=== PATIENT | male | born 1960 | race Caucasian/White ===

== ENCOUNTER 2016-09-02 11:36 | Inpatient (IN) ==
[2016-09-02 13:13] LABS: MANUAL DIFF NEEDED? NO
[2016-09-02 13:23] LABS: BASO% 0.2 % (0.0-0.8); EOS# 0.05 X1000 (0.0-0.7); EOS% 0.8 % (0.0-10.0); HEMOGLOBIN 13.1 g/dL (14.0-18.0); LYMPH# 1.03 X1000 (1.2-3.4); LYMPH% 17.1 % (20.5-51.1); MCHC 35.4 g/dL (33-37); MCV 98.9 FL (81-99); MONO# 0.68 X1000 (0.11-0.59); MONO% 11.3 % (1.7-9.3); MPV 10.5 FL (7.4-10.4); NEUT% 70.6 % (42.2-75.2); PLT 231 X1000 (130-400); RBC 3.74 XMIL (4.7-6.1)
[2016-09-02 13:38] LABS: AGAP 16; ALBUMIN 3.6 g/dL (3.5-5.0); ALKALINE PHOSPHATASE 70 U/L (32-122); BUN 13 mg/dL (8-22); CHLORIDE 93 mmol/L (98-107); COSMO 268; GOT 19 U/L (10-34); GPT 17 U/L (10-44); POTASSIUM 4.1 mmol/L (3.5-5.1); SODIUM 132 mmol/L (136-145); TCO2 23 mmol/L (25-35); TOTAL BILIRUBIN 0.46 mg/dL (0.20-1.00)
--- NOTE | 2016-09-02 14:28 | PROVIDER DOCUMENTATION ---
HPI-Rash/Wound/ReCheck - General Chief Complaint: Sores/Lesions Stated Complaint: LEFT FOOT PAIN Time Seen by Provider: 09/02/16 12:31 Source: patient Allergies/Adverse Reactions: Allergies Allergy/AdvReac Type Severity Reaction Status Date / Time No Known Allergies Allergy Verified 03/08/16 13:32 Home Medications: Home Medication List Medication Instructions Recorded Confirmed Last Taken Type Insulin Lispro [Humalog] 2 unit SQ DIRECTED 08/21/15 09/02/16 03/06/16 07:00 History Lisinopril 5 mg PO DAILY #30 tablet 08/25/15 03/08/16 02/28/16 07:00 Rx Metformin HCl 1,000 mg PO DAILY #30 tablet 01/04/16 03/08/16 02/28/16 07:00 Rx Lisinopril 5 mg PO DAILY #30 tablet 03/08/16 09/02/16 09/02/16 08:30 Rx Metformin [Glucophage] 1,000 mg PO DAILY #30 tablet 03/08/16 09/02/16 09/02/16 08:30 Rx - History of Present Illness-Dermatology Nature of Presenting Problem: 56 yo male presents with concern for ulcer on lateral left foot and drainage/ redness of his left great toe amputation. Had surgery performed middle of June, has been on antibiotics daily until the last two days. Went to [place] this week, and when he came back noticed that he had a blister on the lateral edge of his left foot. Has since opened and drained fluid. The great toe area has redness and purulent drainage from the surgical site, warm to touch up the foot with redness progressing. Denies fever, SOB, chest pain, abdominal pain. Location: reports: feet (left foot) Quality: reports: painful Severity: reports: mild (has decreased sensatioin in the foot, but can start to feel pain) Onset/Duration: reports: 2 days ago Timing: reports: still present, getting worse Context/Associated Symptoms: reports: blisters, other (amputation of great toe) Identifiable cause?: Yes Similar Symptoms Previously?: Yes Recently seen or treated by another doctor?: No Review of Systems - Adult - REVIEW OF SYSTEMS - ADULT Constitutional: denies: chills, fever Eyes: denies: blurred vision, double vision Cardiovascular: denies: chest pain, syncope Respiratory: denies: cough, dyspnea on exertion, shortness of breath, wheezing Gastrointestinal: denies: abdominal pain, diarrhea, nausea, vomiting Genitourinary: denies: flank pain, hematuria Musculoskeletal: reports: joint pain (left foot). denies: bone pain, back pain , frequent leg cramps, muscle aches Integumentary: reports: skin sores/ulcer (lateral left foot ulcer; ulceration on the amputation site of left great toe). denies: itching, rash Neurological: reports: numbness. denies: dizziness/vertigo, headache/migraines , syncope Past History - Adult - PAST MEDICAL HISTORY-ADULT Review of Records: reports: Old Records Reviewed, Nursing Assessment Review, Medications Reviewed, Social history reviewed & non-contributory. Major Childhood Illnesses: reports: denies history Cardiovascular: reports: HTN Respiratory: reports: denies history Gastrointestinal: reports: denies history Obstetrical/Gynecological: reports: denies history Genitourinary: reports: denies history Musculoskeletal: reports: denies history Neurological: reports: denies history Endocrine/Immune: reports: Diabetes Other Conditions: reports: denies history - PRIOR SURGERIES/PROCEDURES Surgical/Procedure History: reports: orthopedic (extremity) (left foot ) - IMMUNIZATION STATUS Childhood Immunizations: See Nurse Assessment Flu Vaccine: See Nurse Assessment - FAMILY HISTORY Family History: reviewed, not pertinent - SOCIAL HISTORY Smoking: cigarettes, greater than 1 pack/day Provider spent 3-5 mins advising pt. on dangers of tobacco.: Discussed manners to quit use, and f/u contacts for add'l counseling. Physical Exam-General - PHYSICAL EXAM-ADULT Initial Vital Signs Reviewed: Yes - CONSTITUTIONAL General Appearance: appears well, alert, no apparent distress - EYES Eyes: PERRL/EOMI, pink conjunctivae. negative: sclera injected, scleral icterus - HEAD, EARS, NOSE, MOUTH & THROAT HENMT: moist mucous membranes - RESPIRATORY Respiratory: chest non-tender, lungs clear, normal breath sounds, no pleuratic chest pain, no respiratory distress, no accessory muscle use. negative: crackles, rales, rhonchi, stridor, wheezing - CARDIOVASCULAR Cardiovascular: normal peripheral pulses, regular rate, rhythm, no edema, no gallop, no JVD, no murmur - MUSCULOSKELETAL Extremity: no pedal edema, no calf tenderness, erythema, inflammation, other. negative: normal inspection (left great toe amputation with purulent discharge at the site. Unable to visualize bone, skin is moist and erythematous. Streaking from the great toe up the metatarsal. Is hot to touch. Lateral left foot/along fifth metatarsal has scabbed ulcer, no drainage. Warm to touch. Pulses and sensation intact.) Peripheral Pulses: radial (R): 2+, radial (L): 2+, dorsalis-pedis (R): 2+, dorsalis-pedis (L): 2+ - SKIN Integumentary: erythema, tenderness, warm. negative: embolic lesions, rash, swelling - NEUROLOGIC Neurologic: grossly normal, no motor/sensory deficits - PSYCHIATRIC Psych/Mental Status: normal mood/affect, normal thought content, normal thought process Progress - PLAN OF CARE/RESULTS Progress/Plan/Lab Results: Vital Signs - 8 hr 09/02/16 11:41 09/02/16 13:34 09/02/16 15:45 Temperature 97.8 F Pulse Rate 116 H 81 Respiratory Rate 20 14 Blood Pressure 184/67 125/67 139/76 O2 Sat by Pulse Oximetry 100 99 100 Laboratory Results - last 24 hr 09/02/16 09/02/16 09/02/16 13:01 13:01 13:01 WBC 6.02 RBC 3.74 L Hgb 13.1 L Hct 37.0 L MCV 98.9 MCH 35.0 H MCHC 35.4 RDW Std Deviation 14.5 Plt Count 231 MPV 10.5 H Immature Gran % (Auto) 0.0 Neut % (Auto) 70.6 Lymph % (Auto) 17.1 L Doddridge % (Auto) 11.3 H Eos % (Auto) 0.8 Baso % (Auto) 0.2 Immature Gran # (Auto) 0.00 Neut # (Auto) 4.25 Lymph # (Auto) 1.03 L Doddridge # (Auto) 0.68 H Eos # (Auto) 0.05 Baso # (Auto) 0.01 Sodium 132 L Potassium 4.1 Chloride 93 L Carbon Dioxide 23 L Anion Gap 16 BUN 13 Creatinine 0.9 Estimated GFR/1.73 m2 > 60 BUN/Creatinine Ratio 14 Glucose 151 H Calculated Osmolality 268 Calcium 9.0 Total Bilirubin 0.46 AST 19 ALT 17 Alkaline Phosphatase 70 Total Protein 7.0 Albumin 3.6 Globulin 3.4 Albumin/Globulin Ratio 1.1 Plasma Lactate 0.8 Orders Category Date Time Status Admit - [facility] [place] Routine AdmDCTranf 09/02/16 16:12 Ordered Diabetic Diet Diet 09/02/16 16:13 Active FOOT COMPLETE LEFT [RAD] Stat Exams 09/02/16 14:30 Completed BLOOD CULTURE [BLDCUL] Stat Lab 09/02/16 13:01 Received CBC WITH ELECTRONIC DIFF [HEME] Stat Lab 09/02/16 13:01 Completed COMPREHENSIVE METABOLIC PANEL [CHEM] Stat Lab 09/02/16 13:01 Completed LACTATE, PLASMA [CHEM] Stat Lab 09/02/16 13:01 Completed Piperacil/Tazobact 3.375 gm/Ns [Zosyn 3.375 gm/Ns] Med 09/02/16 15:52 Discontinued 3.375 gm in 50 ml IV NOW Vancomycin 1 gm/Ns Med 09/02/16 15:49 Discontinued 1 gm in 250 ml IV NOW Telemetry [OM.EQ] Routine Oth 09/02/16 16:12 Active Discuss[address] case with Dr Clark. Pt x ray shows possible early osteomyelitis in the 1st metatarsal. Has purulent drainage from the amputation site. Is afebrile, NEG lactate, normal WBC count. Recommend consult with surgery for evaluation. 1538 Result Diagrams: 09/02/16 13:01 09/02/16 13:01 - XRAY 1 XRAY: Left XRAY Study: Foot Impression: Abnormal (Possible early osteomyelitis in 1st metatarsal.) - CONSULTS/PCP/HOSPITALIST Notification #1 *Consult/PCP/Hospitalist*: Dr. Richard, General Surgeon Time Discussed: 16:09 (Admit for debridement, IV abx) Consult Disposition: Admit Departure - Departure Time of Disposition Decision: 16:09 DIAGNOSIS: Cellulitis of foot, right Disposition: ADMITTED INPATIENT 09 Certified Medical Emergency: Emergent Condition: Stable Referrals and Follow-Ups: None,PCP [Primary Care Provider] - - Critical Care Note This patient required my direct personal management.: No Attestation - Physician/ VANITA Attestation Patient care was provided by Advanced Practice Provider:: Yes Advanced Practice Provider:: Dinesh Mendez Advanced Practice Provider documentation review:: The Mid-level provider documentation, treatment plan and medical decision making was reviewed by the physician who agrees with all treatment and medical decision making by the MLP.
[2016-09-02] MEDS ORDERED: VANCOMYCIN 1 GM/NS 1 GM/250 ML IVPB IV ONE (15:49)
[2016-09-02] MEDS ORDERED: ZOSYN 3.375 GM/NS 3.375 GM/50 ML IVPB IV ONE (15:52)
--- NOTE | 2016-09-02 16:40 | Diag Imaging Result Document ---
PROCEDURE NAME: FOOT COMPLETE LEFT - 09/02/2016 LEFT FOOT, 3 VIEWS: FINDINGS: There has been previous amputation of the great toe. There is mild irregularity of the distal margin of the distal head of the 1st metatarsal. This may relate to early osteomyelitis. There are chronic appearing deformities of the bases of the proximal phalanges of the 2nd and 5th toes noted. There is no acute fracture or dislocation identified. There is calcaneal spurring noted at the Achilles tendon insertion. IMPRESSION: Possible changes of early osteomyelitis at the distal head of 1st metatarsal.
[2016-09-02] MEDS ORDERED: HUMULIN R IV ONE (22:59)
[2016-09-02] MEDS ORDERED: INSULIN LISPRO 2 UNIT SQ SCH (23:00)
[2016-09-02] MEDS ORDERED: VANCOMYCIN IV PER PHARMACY MISC SCH (23:00)
--- NOTE | 2016-09-02 23:28 | HISTORY AND PHYSICAL ---
CHIEF COMPLAINT: Nonhealing wound on his left foot with infection. HISTORY OF PRESENT ILLNESS: This is a 56-year-old male who developed an infected ulcer on his left great toe. He was visiting his family in [place] and subsequently required admission and left great toe amputation at the metatarsophalangeal joint. He has continued to have problems with healing and drainage and had a PICC line and was undergoing IV antibiotics for some time. Things had been improving and then he needed to leave [place] and come back home to [place]. He had been treating it recently with Zuri and was taking Bactrim but he ran out of his Bactrim. He came to the ER with increased foul, purulent drainage and redness of his foot. PAST MEDICAL HISTORY: Diabetes, high blood pressure. PAST SURGICAL HISTORY: Partial amputation of left great toe. HOME MEDICATIONS: Lisinopril, metformin, Humalog. ALLERGIES: No known drug allergies. SOCIAL HISTORY: Denies alcohol or illicit drug use. He does smoke a pack per day. FAMILY HISTORY: Positive for diabetes. REVIEW OF SYSTEMS: Ten systems reviewed and negative except as noted above. PHYSICAL EXAMINATION: GENERAL: He is alert and oriented x3. No acute distress. CV: Regular rate and rhythm. RESPIRATORY: Bilateral breath sounds. GI: Soft, nontender, nondistended. EXTREMITIES: He has palpable dorsalis pedis and posterior tibial pulses bilaterally. His left great toe amputation site has foul, purulent drainage emanating out of it with surrounding erythema and edema. LABORATORY: White blood cell count 6, hemoglobin 13. Sodium 132, glucose 151. IMAGING: A left foot x-ray shows some periosteal changes of the left 1st metatarsal head indicating probably early osteomyelitis. ASSESSMENT AND PLAN: A 56-year-old male with nonhealing diabetic foot ulcer status post great toe amputation with probable osteomyelitis. He will be admitted for vancomycin, Zosyn and further debridement and possibly further amputation of the metatarsal. cc: Dallas Richard MD
[2016-09-02 23:43] LABS: MANUAL DIFF NEEDED? NO
[2016-09-02 23:46] LABS: BASO% 0.4 % (0.0-0.8); EOS% 1.9 % (0.0-10.0); HEMATOCRIT 36.1 % (42.0-52.0); HEMOGLOBIN 12.5 g/dL (14.0-18.0); LYMPH# 1.08 X1000 (1.2-3.4); LYMPH% 20.2 % (20.5-51.1); MCH 34.6 PG (27-31); MCHC 34.6 g/dL (33-37); MONO# 0.77 X1000 (0.11-0.59); MONO% 14.4 % (1.7-9.3); MPV 10.5 FL (7.4-10.4); NEUT% 63.1 % (42.2-75.2); PLT 227 X1000 (130-400); RBC 3.61 XMIL (4.7-6.1)
[2016-09-02] MEDS: ZOSYN 2.25 GM/NS 2.25 GM/50 ML IVPB IV SCH (23:59)
[2016-09-03 00:17] LABS: AGAP 13; BUN 15 mg/dL (8-22); CALCIUM 8.9 mg/dL (8.8-10.2); CHLORIDE 98 mmol/L (98-107); COSMO 277; POTASSIUM 4.2 mmol/L (3.5-5.1); SODIUM 137 mmol/L (136-145); TCO2 26 mmol/L (25-35)
[2016-09-03] MEDS: VANCOMYCIN 2,000 MG in NS 500 ML IV SCH ×2 (01:29→15:20)
[2016-09-03] MEDS: ZOSYN 2.25 GM/NS 2.25 GM/50 ML IVPB IV SCH ×4 (06:39→22:11)
[2016-09-03] MEDS: PRINIVIL PO SCH (10:18)
[2016-09-03] MEDS: GLUCOPHAGE PO SCH (10:18)
--- NOTE | 2016-09-03 10:21 | PROGRESS NOTE ---
DATE: 09/03/2016 SUBJECTIVE: The patient has no complaints this morning. OBJECTIVE: Vital Signs: He is afebrile. Vital signs are stable. General: He is alert and oriented x4. No acute distress. Extremities: Left foot wound is redressed. Laboratory: He has no new labs. ASSESSMENT/PLAN: A 56-year-old male with left diabetic foot infection and osteomyelitis of the 1st metatarsal head. We are planning debridement and drainage of the infection in his left foot tomorrow and possibly a ray amputation involving the head of the 1st metatarsal. He will continue on vancomycin and Zosyn for now. cc: Dallas Richard MD
[2016-09-03] MEDS: NS 1,000 ML IV SCH (22:23)
[2016-09-04] MEDS: VANCOMYCIN 2,000 MG in NS 500 ML IV SCH ×2 (01:42→16:30)
[2016-09-04] MEDS: ZOSYN 2.25 GM/NS 2.25 GM/50 ML IVPB IV SCH ×4 (04:45→20:59)
[2016-09-04] MEDS: GLUCOPHAGE PO SCH (09:19)
[2016-09-04] MEDS: PRINIVIL PO SCH (09:20)
[2016-09-04] MEDS ORDERED: CLAVE SECONDARY SET 11953 ONE (10:33)
[2016-09-04] MEDS ORDERED: DIPRIVAN 1% ONE (12:24)
[2016-09-04] MEDS: NORCO-10 ONE ×2 (12:26→21:04)
[2016-09-04] MEDS ORDERED: ANESTHESIA PB SET 88 IN 5742 ONE (12:38)
[2016-09-04] MEDS ORDERED: EPHEDRINE ONE (12:38)
[2016-09-04] MEDS ORDERED: XYLOCAINE-MPF 2% ONE (12:38)
[2016-09-04] MEDS ORDERED: EXTENSION SET 32 IN 4522 ONE (12:38)
[2016-09-04] MEDS ORDERED: LR 1,000 ML ONE (12:38)
[2016-09-04] MEDS ORDERED: NORCO-10 PO PRN (12:54)
[2016-09-04] MEDS: NS 1,000 ML IV SCH (12:55)
--- NOTE | 2016-09-04 15:04 | OPERATIVE NOTE ---
PROCEDURE DATE: 09/04/2016 PREOPERATIVE DIAGNOSES: 1. Diabetic foot infection. 2. Osteomyelitis of the left foot. 3. Nonhealing surgical wound of the left foot. POSTOPERATIVE DIAGNOSES: 1. Diabetic foot infection. 2. Osteomyelitis of the left foot. 3. Nonhealing surgical wound of the left foot. PROCEDURE: 1. Debridement of skin, subcutaneous tissue, muscle, tendon, and bone greater than 20 square cm. 2. Amputation of the 1st metatarsal head. SURGEON: Dallas Richard MD ANESTHESIA: General. ESTIMATED BLOOD LOSS: 250 mL. COMPLICATIONS: None apparent. SPECIMENS: First metatarsal head and sesamoid bones. FINDINGS: He has purulent drainage from a wound at the previous great toe amputation site. The metatarsal head appeared to be severely inflamed with infection in the distal aspect of the head consistent with osteomyelitis. The surrounding soft tissues appear to be significantly inflamed around the head of the metatarsal. TECHNIQUE: He was brought to the operating room and placed supine on the table. General anesthesia was induced. He was prepped and draped in sterile fashion. A tennis racquet-shaped incision was made along the shaft of the metatarsal head and around the edges of the open wound. The soft tissue was excised sharply with a knife down to the bone. I then used a periosteal elevator to raise the soft tissue off of the shaft of the metatarsal. A power saw was used to divide the metatarsal in the mid portion of the shaft where it appeared normal. The remaining soft tissue attachments were divided with the knife and cautery and the metatarsal head was amputated. The sesamoid bones were grabbed with a Home clamp and excised from the surrounding soft tissue with cautery and the knife. The necrotic, infected appearing subcutaneous fat, muscle, and tendon was also debrided sharply with a knife and cautery back to healthier appearing bleeding edges. A rasp and rongeur were used to smooth the edges of the divided bone. The wound was copiously irrigated with saline. Cautery was used for hemostasis. The skin was then closed with interrupted 2-0 nylon. At the distal aspect the skin did not reapproximate well and I left a portion of the wound open and packed it with saline moistened gauze. He tolerated this without apparent complication. The area of debridement was 9 x 4 cm. He was awakened in stable condition and transferred to the recovery room. cc: Dallas Richard MD
[2016-09-04] MEDS: PERIDEX MT SCH (21:10)
[2016-09-05] MEDS: ZOSYN 2.25 GM/NS 2.25 GM/50 ML IVPB IV SCH ×2 (03:28→10:38)
[2016-09-05] MEDS: VANCOMYCIN 2,000 MG in NS 500 ML IV SCH ×2 (04:11→20:27)
[2016-09-05] MEDS ORDERED: PRINIVIL PO SCH (09:00)
[2016-09-05] MEDS: PERIDEX MT SCH ×2 (10:38→20:27)
[2016-09-05] MEDS: GLUCOPHAGE PO SCH ×2 (10:38→10:39)
[2016-09-05] MEDS: PRINIVIL PO SCH (10:38)
--- NOTE | 2016-09-05 13:29 | PROGRESS NOTE ---
DATE: 09/05/2016 SUBJECTIVE: The patient says he is feeling okay. His left foot feels a little better. OBJECTIVE: He is afebrile. Vital signs are stable.General: He is alert and oriented x4. No acute distress. Extremities: His left foot dressing was taken off and the amputation site is intact. The open portion of the wound was packed. There is some serosanguineous drainage that may be a little cloudy as well. His foot remains somewhat edematous and red but less angry than before. MICROBIOLOGY: The wound culture grew MRSA. ASSESSMENT/PLAN: A 56-year-old male with diabetes and nonhealing diabetic foot infection with osteomyelitis of the 1st metatarsal. He is now status post amputation of the metatarsal head and debridement of the soft tissue. We will continue vancomycin and stop the Zosyn. He will also continue packing the wound with Vashe moistened gauze. We may be able to discharge him tomorrow on Bactrim. cc: Dallas Richard MD
[2016-09-06] MEDS: VANCOMYCIN 2,000 MG in NS 500 ML IV SCH (08:49)
[2016-09-06] MEDS: PRINIVIL PO SCH (08:50)
[2016-09-06] MEDS: PERIDEX MT SCH (08:50)
[2016-09-06] MEDS: GLUCOPHAGE PO SCH ×2 (08:50→08:51)
[2016-09-06 15:11] VITALS: BP 159/67
--- NOTE | 2016-10-04 12:42 | DISCHARGE SUMMARY ---
ADMISSION DATE: 09/03/2016 DISCHARGE DATE: 09/06/2016 ADMITTING PHYSICIAN: Dallas Richard MD. ADMITTING DIAGNOSIS: 1. Nonhealing diabetic foot ulcer. 2. Status post great toe amputation. INCOMPLETE REPORT--DICTATION STOPS HERE. cc: Dallas Richard MD
== END 2016-09-06 16:54 | disposition home or self-care (01) ==
LOC: ED 11:36 → 4N 09-03 00:43 → 3N 09-04 17:44
PROVIDERS: ADMIT Surgery; ATTEND Surgery

== ENCOUNTER 2016-11-08 14:12 | Inpatient (IN) ==
--- NOTE | 2016-11-08 15:59 | Diag Imaging Result Doc PS360 ---
EXAM: FOOT COMPLETE LEFT HISTORY: Diabetic foot ulcer TECHNIQUE: Three views COMPARISON: 09/02/2016 FINDINGS: There is been interval amputation of the first metatarsal at the mid diaphysis with heterotopic bone formation. No evidence for osteomyelitis residual first metatarsal. There is an acute fracture of the distal fifth metatarsal widening of the fifth MTP joint space deformity of the second through fourth proximal phalanges is essentially stable compared with remote healed fractures. Small bony fragment adjacent to the proximal phalangeal epiphysis which appears well-corticated and chronic. There is a small soft tissue ulcer overlying the fifth metatarsal head which appears demineralized. Pathologic fracture fifth metatarsal head secondary to osteomyelitis is not excluded. There is mild cortical irregularity of the articular surface of the proximal phalanx of the little toe. Plantar calcaneal spur is unchanged Correlate clinically. IMPRESSION: Demineralized fifth metatarsal head with associated fracture and overlying ulcer. A pathologic fracture involving the fifth metatarsal head secondary to osteomyelitis cannot be excluded. There is widening of the fifth MTP joint space compatible with fluid accumulation which may be secondary to hemarthrosis or pyarthrosis. Irregularity about the articular surface of the proximal phalanx at the MTP joint may indicate early osteomyelitis of the proximal phalanx little toe. Electronically signed by Marry Potts 11/08/2016 3:57 PM
[2016-11-08 16:49] LABS: MANUAL DIFF NEEDED? NO
[2016-11-08 16:59] LABS: BASO% 0.2 % (0.0-0.8); EOS# 0.06 X1000 (0.0-0.7); EOS% 1.2 % (0.0-10.0); HEMATOCRIT 37.2 % (42.0-52.0); HEMOGLOBIN 12.5 g/dL (14.0-18.0); LYMPH% 17.7 % (20.5-51.1); MCH 33.6 PG (27-31); MCHC 33.6 g/dL (33-37); MONO# 0.55 X1000 (0.11-0.59); MONO% 10.8 % (1.7-9.3); MPV 9.9 FL (7.4-10.4); NEUT% 70.1 % (42.2-75.2); PLT 260 X1000 (130-400); RBC 3.72 XMIL (4.7-6.1)
[2016-11-08 17:08] LABS: AGAP 12; ALBUMIN 4.1 g/dL (3.5-5.0); ALKALINE PHOSPHATASE 100 U/L (32-122); BUN 9 mg/dL (8-22); CALCIUM 9.6 mg/dL (8.8-10.2); CHLORIDE 95 mmol/L (98-107); COSMO 269; GOT 13 U/L (10-34); GPT 9 U/L (10-44); POTASSIUM 4.1 mmol/L (3.5-5.1); SODIUM 135 mmol/L (136-145); TCO2 28 mmol/L (25-35); TOTAL PROTEIN 7.3 g/dL (6.3-8.3)
[2016-11-08] MEDS: ZOSYN 3.375 GM/NS 3.375 GM/50 ML IVPB IV SCH ×2 (17:10→22:00)
[2016-11-08] MEDS: NS 1,000 ML IV SCH (17:10)
[2016-11-08] MEDS ORDERED: VANCOMYCIN IV PER PHARMACY MISC SCH (17:45)
--- NOTE | 2016-11-08 17:59 | HISTORY AND PHYSICAL ---
CHIEF COMPLAINT: Left foot pain, swelling and redness. HISTORY OF PRESENT ILLNESS: This is a 56-year-old male known to me from a prior admission with a diabetic foot ulcer and nonhealing wound status post great toe amputation in [place]. This is of the left great toe. His wound was nonhealing. He presented to the emergency room with evidence of ongoing infection osteomyelitis of his foot. He was admitted and put on broad-spectrum antibiotics. He subsequently underwent debridement and amputation of the 1st metatarsal head. I have subsequently been following him as an outpatient. This wound has healed up. However he has had a developing ulcer on the lateral aspect of his foot. This was present prior to his last admission but it was not acutely infected. Now this wound is draining. His foot is more swollen and red and hurting. PAST MEDICAL HISTORY: Diabetes, hypertension. PAST SURGICAL HISTORY: Partial amputation of left great toe. HOME MEDICATIONS: Lisinopril, metformin and Humalog. ALLERGIES: No known drug allergies. SOCIAL HISTORY: He denies alcohol or illicit drug use. He does smoke a pack per day. FAMILY HISTORY: Is positive for diabetes. REVIEW OF SYSTEMS: Ten systems reviewed and negative except as noted above. PHYSICAL EXAMINATION: VITAL SIGNS: Temperature 99.5 degrees, pulse 91, respirations 20, blood pressure 192/85. GENERAL: He is somewhat disheveled appearing but in no acute distress. CV: Regular rate and rhythm. RESPIRATORY: No work of breathing. GI: Soft, nontender, nondistended. EXTREMITIES: His left great toe amputation site appears to be healed. There is no open wound. However, the dorsum of his foot is swollen and red. The lateral ulcer near the 5th metatarsal head is draining some cloudy fluid. It does probe to bone. I do palpate a dorsalis pedis pulse in the foot. ASSESSMENT/PLAN: A 56-year-old male with diabetic foot infection. Probable osteomyelitis of the left 5th metatarsal head. I am going to go ahead and admit him today and start vancomycin and Zosyn. I will get an x-ray of the foot. He likely has osteomyelitis and will probably require a amputation of the 5th toe and metatarsal head. cc: Dallas Richard MD
[2016-11-08] MEDS: VANCOMYCIN 1.5 GM in NS 250 ML IV SCH (20:19)
[2016-11-09] MEDS: ZOSYN 3.375 GM/NS 3.375 GM/50 ML IVPB IV SCH ×3 (05:00→18:07)
[2016-11-09] MEDS ORDERED: ZOFRAN IV PRN (08:42)
[2016-11-09] MEDS ORDERED: TYLENOL PO PRN (08:42)
[2016-11-09] MEDS ORDERED: NICODERM PATCH TD PRN (08:45)
[2016-11-09] MEDS: VANCOMYCIN 1.5 GM in NS 250 ML IV SCH ×2 (08:52→21:57)
[2016-11-09] MEDS: NS 1,000 ML IV SCH ×3 (08:55→22:05)
--- NOTE | 2016-11-09 09:12 | Diag Imaging Result Doc PS360 ---
CHEST-2 VIEWS - 11/09/2016 INDICATION: sob TECHNIQUE: COMPARISON: 03/08/2016 FINDINGS: The lungs are normally expanded and clear. Heart size and mediastinal contours are normal. No pneumothorax or pleural effusion. IMPRESSION: Negative exam. Electronically signed by Phong Hassan 11/09/2016 9:10 AM
[2016-11-09 09:56] LABS: URINE CULTURE NEEDED? NO; URINE MICRO REVIEW NEEDED? NO; URINE SOURCE CLEAN CATCH
[2016-11-09 10:03] LABS: UR EPITHELIAL CELLS <10 /HPF (<10); URINE BACTERIA 1+ /HPF; URINE RBC <10 /HPF (<10); URINE WBC <10 /HPF (<10)
[2016-11-09 10:05] LABS: BILIRUBIN URINE NEGATIVE (NEGATIVE); BLOOD URINE TRACE (NEGATIVE); COLOR YELLOW; GLUCOSE URINE NEGATIVE (NEGATIVE); LEUKOCYTES URINE NEGATIVE (NEGATIVE); NITRITE URINE NEGATIVE (NEGATIVE); PH URINE 5.5; PROTEIN URINE 50 mg/dL (NEGATIVE); SP GRAVITY URINE 1.019; TURBIDITY URINE CLEAR (CLEAR); UROBILINOGEN URINE NORMAL (NORMAL)
--- NOTE | 2016-11-09 10:05 | CONSULTATION ---
DATE OF CONSULTATION: 11/09/2016 CONSULTATION SUMMARY: This is a 56-year-old admitted by Dr. Dallas Richard with a history of diabetic foot ulcer. He says this has been going on for a year and a half. He had previous trouble with his right foot, the 4th toe, in-between the 4th and fifth toe. He had to have a 4th toe amputation on the right foot. He has a nonhealing wound now on the great toe, and he is status post left great toe amputation which was done in [place]. At this point, it is his 5th toe nonhealing and ongoing infection, osteomyelitis of the foot, admitted for broad-spectrum antibiotics and most probable will undergo debridement and amputation. I guess to be the first metatarsal head. PAST MEDICAL HISTORY: 1. Diabetes mellitus, type 2. 2. Hypertension. PAST SURGICAL HISTORY: Partial amputation of the left great toe. He has had right foot 4th toe amputation. MEDICATIONS: 1. Lisinopril. 2. Metformin. 3. Humalog. ALLERGIES: No known drug allergies. SOCIAL HISTORY: He drinks alcohol on weekends but not regular. No illicit drugs. He smokes about a pack and half a day. He wants to quit. FAMILY HISTORY: Positive for diabetes. REVIEW OF SYSTEMS: No weight gain or loss. No fever or chills. HEENT: Unremarkable. Respiratory: No increased work of breathing or dyspnea. Cardiovascular: No chest pain or tachy palpitation. GI/: No complaints. No changes. Endocrinologic/Hematologic: History of diabetes. PHYSICAL EXAMINATION: Vital Signs: He is afebrile. Temperature 99.5. Pulse 91, respirations 20, blood pressure initially was 192/85. General: Well-developed, well-nourished. CVP less than 6 cm. Lungs: Clear in all lung marquez, anterior and posterior. Cardiovascular: Regular rhythm and rate without murmur or S3. Abdomen: Soft. Skin: Warm and dry. Left foot is wrapped up. Right foot unremarkable for no erythema or open ulcers at this time. He states his sugars have been well controlled in the last several months. ASSESSMENT AND PLAN: 1. Diabetic foot ulcer. 2. Probable osteomyelitis of the left 5th metatarsal head and so admitted, put on vancomycin and Zosyn. X-ray of the foot: I suspect he will need amputation of the 5th toe, metatarsal head. 3. Diabetes mellitus, type 2. We will check blood sugars pattern sugars. 4. Tobacco cessation. He would like to pursue that. We will give a nicotine patch if needed. cc: Derek Anton MD
[2016-11-09] MEDS: PRILOSEC PO SCH (10:38)
[2016-11-09] MEDS: GLUCOPHAGE PO SCH (10:38)
[2016-11-09] MEDS: LOVENOX SUBQ SCH (10:38)
[2016-11-09] MEDS: PRINIVIL PO SCH (10:39)
[2016-11-09] MEDS: HUMULIN R SUBQ SCH ×3 (12:14→22:00)
--- NOTE | 2016-11-09 16:16 | PROGRESS NOTE ---
DATE: 11/09/2016 CONCLUSION: Patient is admitted to the hospital with a left foot infection. The x-ray of the left foot shows probable osteomyelitis. In addition I obtained a culture from the lateral distal wound of the left foot and the swab I pushed in the draining wound went to the bone. Therefore by definition patient has osteomyelitis of the foot. The purulent drainage had a foul odor associated with it. RECOMMENDATIONS: I agree with treating the patient with vancomycin and Zosyn pending culture results. DISCUSSION: The patient says approximately 2 months ago he noticed that his left foot started swelling and draining the purulent fluid. He did not have any fever or chills. He got progressively worse and has been admitted to the hospital now for probable surgery on the foot to be formed by Dr. Rcihard. The patient's creatinine is 0.7. Liver function studies are normal. CBC shows a white count of 5090, hemoglobin 12.5 and platelet count 260,000. Creatinine is 0.7. GFR is greater than 60. Liver function studies are normal. Urinalysis showed 1+ bacteria. Blood cultures results are pending. I have just obtained a culture from the left foot. Patient's chest x-ray is clear. PAST MEDICAL HISTORY/REVIEW OF SYSTEMS: Eyes and ears: He denies difficulty hearing or seeing. Neck: No meningismus. Respiratory: No cough or shortness of breath. Cardiovascular: No chest pain or palpitations. GI: No nausea, vomiting, or diarrhea. : No dysuria or flank pain. Bones, joints, muscles: See description of the patient's left foot infection. His right foot is not bothering him. Neurologic: Patient has loss of peripheral sensation in his legs. He can move his extremities. There is no tremor. The patient's memory as regarding his medical history was intact. MEDICAL DISEASES: Positive for diabetes mellitus, and hypertension. SURGICAL HISTORY: Patient has had partial amputation of his left foot and the right foot. MEDICATIONS: Taken at home include lisinopril, metformin and insulin. SOCIAL HISTORY: Patient smokes cigarettes. He does not drink alcoholic beverages or abuse drugs. He is single. He has cats and dogs outside. His son lives with him. The patient is disabled. PHYSICAL EXAMINATION: Temperature is 97.9 degrees, pulse 68, respirations 18, blood pressure 156/81.General: This is a somewhat ill-appearing, middle-aged male who is in no acute distress. Head, eyes, ears, nose, and throat: He can hear my spoken words. He can see near objects. His mouth had very poor hygiene, he was missing teeth and the ones he had, had caries and some appeared to be necrotic. Neck: No meningismus. Thorax: The patient has an increased AP diameter of the chest. Lungs: Clear to auscultation. Cardiovascular: Peripheral pulses were diminished. Heart rate is regular. Abdomen: Soft and nontender. Extremities: The patient's left foot laterally has the wound. This is the area where I put a swab in to get a culture. The swab went to the bone. Drainage was found and drainage had a foul odor to it. Thank you for the consult. cc: MD Derek Abdalla MD
--- NOTE | 2016-11-09 18:16 | PROGRESS NOTE ---
DATE: 11/09/2016 SUBJECTIVE: He complains of left foot pain. OBJECTIVE: Vital Signs: He is afebrile. Vital signs are stable. General: He is alert and oriented x3. No acute distress. Respiratory: No work of breathing. CV: Regular rate and rhythm. Extremities: His left foot dressing is clean and dry. LABORATORIES: White blood cell count is 5, hemoglobin 12.5, metabolic profile reviewed and unremarkable. IMAGING: His left foot x-ray shows a fracture of the head of the 5th metatarsal and widening of the 5th MTP joint space. There is irregularity of the articular surface of the proximal phalanx at the 5th MTP joint. All of this is concerning for osteomyelitis with associated secondary fracture. He has an overlying ulcer as well in this area. ASSESSMENT AND PLAN: A 56-year-old male with diabetic foot infection, nonhealing ulcer and clinical and radiographic evidence consistent with osteomyelitis of the left 5th phalange and metatarsal head. I think he would have difficulty healing this and will ultimately do better with a ray amputation of the 5th toe. I discussed risks and benefits with him, including bleeding, ongoing infection, nonhealing wound, wound dehiscence, persistent pain and other imponderables. He understands and agrees to proceed. cc: MD Derek Jenkins MD
[2016-11-09] MEDS: NORCO-7.5 PO PRN (22:04)
[2016-11-10] MEDS: ZOSYN 3.375 GM/NS 3.375 GM/50 ML IVPB IV SCH ×6 (00:31→21:30)
--- NOTE | 2016-11-10 06:12 | EKG Report ---
Test Performed on : 11/10/2016 05:21:31 AM Test Reason : chest pain Blood Pressure : / mmHG Vent. Rate : 058 BPM Atrial Rate : 058 BPM P-R Int : 192 ms QRS Dur : 090 ms QT Int : 450 ms P-R-T Axes : 041 000 019 degrees QTc Int : 441 ms Sinus bradycardia. Otherwise normal ECG No previous ECGs available Confirmed by Nafisa Marie MD ([id number]) on 11/10/2016 1:02:40 PM
[2016-11-10 06:26] LABS: MANUAL DIFF NEEDED? NO
[2016-11-10 06:30] LABS: BASO% 0.3 % (0.0-0.8); EOS# 0.16 X1000 (0.0-0.7); EOS% 4.3 % (0.0-10.0); HEMATOCRIT 34.9 % (42.0-52.0); HEMOGLOBIN 11.8 g/dL (14.0-18.0); IMM GRAN# 0.02 X1000 (0.0-0.04); IMM GRAN% 0.5 % (0.0-0.5); LYMPH# 1.35 X1000 (1.2-3.4); MCHC 33.8 g/dL (33-37); MCV 100.6 FL (81-99); MONO# 0.55 X1000 (0.11-0.59); MONO% 14.7 % (1.7-9.3); NEUT% 44.2 % (42.2-75.2); PLT 255 X1000 (130-400); RBC 3.47 XMIL (4.7-6.1)
[2016-11-10] MEDS: HUMULIN R SUBQ SCH ×4 (06:38→21:34)
[2016-11-10 06:46] LABS: INR 0.99; PROTIME 10.4 Seconds (9.2-11.7); PTT 32.2 Seconds (22.0-36.0)
[2016-11-10 06:47] LABS: AGAP 7; ALBUMIN 3.3 g/dL (3.5-5.0); ALKALINE PHOSPHATASE 74 U/L (32-122); BUN 6 mg/dL (8-22); CALCIUM 9.1 mg/dL (8.8-10.2); CHLORIDE 104 mmol/L (98-107); COSMO 281; GOT 14 U/L (10-34); GPT 8 U/L (10-44); IRON SATURATION 14 %; MAGNESIUM 1.8 mg/dL (1.5-2.7); POTASSIUM 4.3 mmol/L (3.5-5.1); SODIUM 141 mmol/L (136-145); TCO2 30 mmol/L (25-35); TIBC 285 ug/dL; TOTAL BILIRUBIN 0.21 mg/dL (0.20-1.00); TOTAL IRON 39 ug/dL (53-167); TOTAL PROTEIN 6.4 g/dL (6.3-8.3); UNBOUND IRON 246 ug/dL (112-346)
[2016-11-10 06:49] LABS: HEMOGLOBIN A1C 5.6 % (4.8-6.0)
[2016-11-10 07:47] LABS: FREE T4 1.27 ng/dL (0.93-1.70)
[2016-11-10] MEDS ORDERED: ZOFRAN ONE (07:55)
[2016-11-10] MEDS ORDERED: ROBINUL ONE (07:55)
[2016-11-10] MEDS ORDERED: XYLOCAINE-MPF 2% ONE (07:55)
[2016-11-10] MEDS ORDERED: DIPRIVAN 1% ONE (07:56)
[2016-11-10] MEDS ORDERED: FENTANYL ONE (07:57)
[2016-11-10] MEDS: VANCOMYCIN 1.5 GM in NS 250 ML IV SCH ×2 (08:13→22:57)
[2016-11-10] MEDS: LOVENOX SUBQ SCH (09:02)
[2016-11-10] MEDS: PRILOSEC PO SCH (09:03)
[2016-11-10] MEDS: PRINIVIL PO SCH (09:03)
[2016-11-10] MEDS ORDERED: SODIUM CHLORIDE 0.9% 10 ML ONE (10:06)
[2016-11-10] MEDS ORDERED: EPHEDRINE ONE (10:06)
[2016-11-10] MEDS ORDERED: NEOSPORIN OINTMENT TUBE ONE (10:38)
[2016-11-10] MEDS: DILAUDID ONE ×2 (11:13→11:18)
--- NOTE | 2016-11-10 13:44 | OPERATIVE NOTE ---
PROCEDURE DATE: 11/10/2016 PREOPERATIVE DIAGNOSES: 1. Nonhealing left diabetic foot ulcer. 2. Left diabetic foot infection. 3. Left foot osteomyelitis. POSTOP DIAGNOSES: 1. Nonhealing left diabetic foot ulcer. 2. Left diabetic foot infection. 3. Left foot osteomyelitis. PROCEDURE: Left 5th toe ray amputation including the 5th metatarsal head. SURGEON: Dallas Richard MD. ANESTHESIA: General. ESTIMATED BLOOD LOSS: 60 mL. COMPLICATIONS: None apparent. SPECIMENS: Left 5th toe and metatarsal head. FINDINGS: The metatarsal head was obviously degenerative and had what appeared to be fracture and some necrosis. The proximal shaft of the metatarsal appeared to be viable and not grossly infected. TECHNIQUE: He was brought to the operating room and placed supine on the table. The left foot was prepped and draped in usual sterile fashion. General anesthesia was induced. An elliptical incision was made around the 5th toe including the ulcer and then carried out laterally along the shaft of the 5th metatarsal. Dissection was carried down through the dermis into the soft tissue sharply with a knife down to the metatarsophalangeal joint. The periosteal elevator was used to elevate the soft tissues off of the joint and off of the shaft of the metatarsal. I then divided the metatarsal at its midpoint with a Konrad cover and then I removed the distal metatarsal and phalange by dividing the remaining soft tissue attachments with cautery. Some sharp edges of the metatarsal were cleaned up with a rongeur and then a file until it was smooth. We then washed out the wound thoroughly with saline and used cautery for hemostasis and then I closed the skin with interrupted 2-0 nylon sutures. A sterile dressing was applied. There were no apparent complications. cc: MD Derek Jenkins MD
--- NOTE | 2016-11-10 14:33 | PROGRESS NOTE ---
DATE: 11/10/2016 SUBJECTIVE: Mr. Madera states he is he is feeling pretty good today, no complaints, ate all his lunch. EXAM: Vital signs: Today remains afebrile, temperature 97.6 degrees, pulse 67, respirations 13 blood pressure 141/74. HEENT: Pupils are equal, round. Lungs: Clear in all lung marquez. Cardiovascular: Regular rhythm, rate without murmur, S3. Urine output was 3.7 L. LAB: White count 3750, hematocrit 34, platelet count 255,000. Sodium 141, potassium 4.3, chloride 104, BUN 6, creatinine 0.6. Liver functions unremarkable. Albumin 3.3, cholesterol, LDL was 107, HDL was 28. ASSESSMENT AND PLAN: 1. Nonhealing left diabetic foot ulcer. Left diabetic foot infection. Left foot osteomyelitis had left 5th toe ray amputation including 5th metatarsal head, she tolerated well. 2. Diabetes mellitus type 2. Continue present antibiotics. Dr. Hernandez is on the case, x-ray showed probable osteomyelitis in addition culture data from the lateral distal wound left foot and the swab which was the draining wound went to the bone therefore by definition is osteomyelitis. Continue vancomycin and Zosyn. Will need 6 weeks of IV antibiotics I presume. 1. History of smoking aware. 2. Diabetes mellitus type 2. Sugars under good control. Review of orders I do not see any change at this point. Blood sugars are well controlled. cc: Derek Anton MD
[2016-11-10] MEDS: NORCO-7.5 PO PRN ×2 (16:05→21:31)
--- NOTE | 2016-11-10 17:05 | PROGRESS NOTE ---
DATE: 11/10/2016 The patient today had amputation of the left 5th toe. MEDICATIONS: The patient is receiving a combination of vancomycin and Zosyn. PHYSICAL EXAMINATION: Vital Signs: Temperature is 98 degrees, pulse 67, respirations 14, blood pressure 141/74. General: This is an obese but otherwise healthy-appearing, middle-aged male. He is in no acute distress. Lungs: Clear to auscultation. Cardiovascular: Regular heart rate. Abdomen: Soft and nontender. Extremities: The patient's left foot has a dressing around it. The dressing is intact. LAB AND X-RAY: There is no new x-ray. The CBC for today showed a white count of 3750, hemoglobin 11.8, and platelet count 255,000. Creatinine 0.8. GFR is greater than 60. The culture from the patient's wound which I obtained yesterday is sterile. ASSESSMENT AND PLAN: Patient is status post amputation of the left 5th toe. I will continue the patient's current antibiotics pending culture result. COMORBIDITIES: He is a diabetic and he also smokes cigarettes. cc: MD Derek Abdalla MD
[2016-11-11] MEDS: ZOSYN 3.375 GM/NS 3.375 GM/50 ML IVPB IV SCH ×4 (03:12→22:46)
[2016-11-11] MEDS: HUMULIN R SUBQ SCH ×4 (06:24→22:46)
[2016-11-11] MEDS: PRINIVIL PO SCH (08:33)
[2016-11-11] MEDS: GLUCOPHAGE PO SCH (08:34)
[2016-11-11] MEDS: PRILOSEC PO SCH (08:34)
[2016-11-11] MEDS: LOVENOX SUBQ SCH ×2 (08:35→08:36)
[2016-11-11] MEDS: VANCOMYCIN 1.5 GM in NS 250 ML IV SCH ×2 (11:39→23:16)
--- NOTE | 2016-11-11 11:42 | PROGRESS NOTE ---
DATE: 11/11/2016 SUBJECTIVE: Mr. Madera is a 56-year-old white male diabetic who underwent a left 5th toe amputation per Dr. Richard yesterday. OBJECTIVE: His wound remains intact. It is dry. He continues to receive antibiotics, vancomycin and Zosyn. PLAN: We will leave his dressing intact at this time. He is keeping his weight off this foot. cc: MD Derek Brenner MD
--- NOTE | 2016-11-11 12:57 | PROGRESS NOTE ---
DATE: 11/11/2016 SUBJECTIVE: He states he feels good, had a good night. Afebrile. Pain is controlled. OBJECTIVE: Vital signs: Temperature 98.5 degrees, pulse 67, respirations 20, blood pressure 158/74. HEENT: The pupils are equal and round. Neck: CVP less than 6 cm. Lungs: Clear in all lung marquez. Cardiovascular: Regular rhythm and rate, without murmur or S3. Abdomen: Soft. Skin: Warm and dry. URINE OUTPUT: Over 3 L. LABORATORY: White count 3750, hematocrit 34, platelet count 255,000. Sodium 141, potassium 4.3, chloride 104, bicarbonate 30, BUN 6, creatinine 0.8, blood sugar 156 and 136. TSH is 1.77 T4 is 1.27. Wound culture grew out a Gram-negative topher and Gram-positive cocci. ASSESSMENT AND PLAN: 1. Status post amputation of 5th toe, left foot. Osteomyelitis. On vancomycin and Zosyn. Continue present antibiotics. 2. Diabetes mellitus, type 2. Sugar is under good control. REVIEW OF ORDERS: I do not see any changes to make in the orders. He is on vancomycin 1.5 g IV q.12, Zosyn 3.375 mg IV q.6, nicotine patch 21 mg as needed (I do not think he has used it yet), metformin 1 g daily, Prinivil 10 mg daily. Hemoglobin A1c was excellent at 5.6. cc: Derek Anton MD
[2016-11-11] MEDS: NORCO-7.5 PO PRN ×2 (13:02→22:50)
[2016-11-12] MEDS: ZOSYN 3.375 GM/NS 3.375 GM/50 ML IVPB IV SCH ×4 (04:30→22:40)
[2016-11-12] MEDS: HUMULIN R SUBQ SCH ×4 (06:39→22:39)
[2016-11-12] MEDS: NORCO-7.5 PO PRN ×3 (08:32→23:59)
[2016-11-12] MEDS: PRILOSEC PO SCH (08:33)
[2016-11-12] MEDS: PRINIVIL PO SCH (08:33)
[2016-11-12] MEDS: GLUCOPHAGE PO SCH (08:33)
[2016-11-12] MEDS: LOVENOX SUBQ SCH (08:45)
--- NOTE | 2016-11-12 10:11 | PROGRESS NOTE ---
DATE: 11/12/2016 SUBJECTIVE: Mr. Madera feels good, had a good night. His Gram stain from wound culture grew out Klebsiella oxytoca and Staphylococcus aureus. Present antibiotics, the patient is taking vancomycin, Zosyn. I believe we can probably narrow that down. I will discuss with Dr. Hernandez. PHYSICAL EXAMINATION: Vital Signs: Today afebrile, temperature 97.6 degrees, pulse 70, respirations 18, blood pressure 186/85. HEENT: Pupils are equal and round. Lungs: Clear in all marquez. Cardiovascular Examination: Regular rhythm and rate without murmur or S3. Is and Os: Urine output 900 mL. LABORATORY DATA: Blood sugar 201, 130, 123. ASSESSMENT AND PLAN: 1. Status post amputation of 5th toe, osteomyelitis, on vancomycin and Zosyn. 2. Diabetes mellitus type 2. Sugars under good control. 3. Review of microbiology and the sensitivities. The Staphylococcus aureus is oxacillin resistant and the Klebsiella oxytoca appears to be sensitive to cefazolin. I am going to leave antibiotics alone at this point. cc: Derek Anton MD
--- NOTE | 2016-11-12 10:53 | PROGRESS NOTE ---
DATE: 11/12/2016 Mr. Madera is status post left small toe amputation, left foot per Dr. Richard. He has good blood supply to his foot. He is receiving IV antibiotics postoperatively under the direction of Dr. Hernandez, our Infectious Disease physician. We are ready to send him home tomorrow, on Sunday with followup in Dr. Richard's outpatient offices in 1 week. We will allow Dr. Hernandez to determine whether he needs ongoing antibiotics. His wound appears to be clean and intact. It was redressed today. cc: MD Derek Brenner MD
[2016-11-12] MEDS: VANCOMYCIN 1.5 GM in NS 250 ML IV SCH ×2 (12:42→23:15)
[2016-11-13] MEDS: ZOSYN 3.375 GM/NS 3.375 GM/50 ML IVPB IV SCH ×4 (04:19→18:06)
[2016-11-13] MEDS: HUMULIN R SUBQ SCH ×3 (06:40→18:29)
[2016-11-13] MEDS: NORCO-7.5 PO PRN (08:03)
[2016-11-13] MEDS: PRILOSEC PO SCH (08:03)
[2016-11-13] MEDS: GLUCOPHAGE PO SCH (08:03)
[2016-11-13] MEDS: PRINIVIL PO SCH (08:03)
[2016-11-13] MEDS: LOVENOX SUBQ SCH (08:03)
[2016-11-13] MEDS: VANCOMYCIN 1.5 GM in NS 250 ML IV SCH (11:16)
--- NOTE | 2016-11-13 14:55 | PROGRESS NOTE ---
DATE: 11/13/2016 SUBJECTIVE: He is feeling good. Eating lunch. No complaints. Breathing comfortably. Remains afebrile. He wants to go home with home health. OBJECTIVE: Vital signs: Temperature 97.5 degrees, pulse 78, respirations 18, blood pressure 169/84. CVP less than 6 cm. Lungs: Clear in all lung marquez. Cardiovascular: Regular rhythm and rate without murmur or S3. Abdomen: Soft. Skin: Warm and dry. : Urine output was 900 mL. LABORATORY: White count from 11/10 and chemistries reviewed. Blood sugar was 144, 123, 113. Well-controlled. ASSESSMENT AND PLAN: 1. Status post left small toe amputation per Dr. Richard. Good blood supply to his foot. Receiving IV antibiotics under direction of Dr. Hernandez. Decide how long he needs the antibiotics, and he wants to go home with home health. 2. Diabetes mellitus type 2. Sugars are controlled. cc: Derek Anton MD
[2016-11-13 15:43] VITALS: BP 145/65
--- NOTE | 2016-11-13 20:47 | PROGRESS NOTE ---
DATE: 11/13/2016 SUBJECTIVE: The patient has a diabetic foot infection. He had amputation of the toe that had the osteomyelitis by Dr. Richard. Culture from the patient's foot grew methicillin-resistant Staph aureus and Klebsiella. I have electronically sent a prescription for Levaquin 500 mg daily and doxycycline 100 mg every 12 hours, both for a total of 15 days. I have requested that the patient see me in the office in 2 weeks. cc: MD Derek Abdalla MD
--- NOTE | 2016-11-14 14:36 | DISCHARGE SUMMARY ---
ADMISSION DATE: 11/08/2016 DISCHARGE DATE: 11/13/2016 ADMITTING DIAGNOSIS INFECTED LEFT TOE.: DISCHARGE DIAGNOSIS: Infected left toe. PRINCIPAL PROCEDURE: Amputation, left 5th toe, per Dr. Richard on 11/10/2016. DISCHARGE DISABILITY: Full. DISCHARGE MEDICATION: He is to return to his home medications. DISCHARGE DIET: Diabetic diet. HOSPITAL COURSE: Mr. Bria aMdera is a 56-year-old white male diabetic who was admitted by Dr. Richard on 11/08/2016. The hospitalists and Dr. Shankar Hernandez were consulted because of an infection involving his left toe. He required amputation of the left toe on 11/10/[address] Richard and postoperatively he did well. It was felt safe to discharge him to his home on postop day 3, with followup in our outpatient offices in 1 week. cc: MD Derek Brenner MD
== END 2016-11-13 19:49 | disposition home or self-care (01) ==
LOC: DIRADM 14:12 → 4N 14:42 → 3N 16:27
PROVIDERS: ADMIT Emergency Medicine; ATTEND Surgery